=== PATIENT | female | born 1950 | race Caucasian/White ===

== ENCOUNTER → 2022-08-06 13:36 | Outpatient (REF) | payer MEDICARE, BC, SELFPAY ==
--- NOTE | 2022-08-06 13:44 | CA_ITS ---
Transthoracic Echocardiogram Patient (Last, First, Middle): Sridevi Morley, Gender: Female Date of : 1950 Age: 72 Procedure Date: 08/06/2022 Procedure Type: Transthoracic Echocardiogram Location: [place] Height: 165.1 cm Weight: 90.72 kg BSA: 1.98 m2 Heart Rate: bpm BP: 134 / 80 mmHg Chief Financial Officer: MICHELLE Referring MD: Louis Arguello MD Symptoms: DYSPNEA ON EXERTION R06.09 Study Quality: Technically Difficult ECG Rhythm: Sinus Conclusions: - The left ventricular systolic function is normal. The calculated ejection fraction is 69% by biplane method. - No obvious valvular pathology seen on this study. Findings Procedure Information The study quality is limited by lung artifact. Left Ventricle Normal left ventricular cavity size. There is mildly increased left ventricular wall thickness. The left ventricular systolic function is normal. The calculated ejection fraction is 69% by biplane method. There is no evidence of regional wall motion abnormalities. Diastolic function is normal for age. Right Ventricle Normal right ventricular cavity size. There is low normal right ventricular systolic function. Atria Both atria are normal in size. Aortic Valve There is a normal trileaflet aortic valve. There is no aortic valve stenosis. There is no aortic valve regurgitation. Mitral Valve The mitral valve appears normal. There is no mitral valve regurgitation. There is no mitral valve stenosis. Pulmonic Valve The pulmonic valve is likely normal. Tricuspid Valve There is trace tricuspid valve regurgitation. There is no evidence of pulmonary hypertension. Great Vessels The asc aorta is normal in size. Venous The inferior vena cava was not well visualized. Pericardium/Pleural There is no evidence of pericardial effusion. Prior Study Comparison No prior study available for comparison. Recommendations, Care & Conclusions No obvious valvular pathology seen on this study. Measurements 2D Linear Measurements IVSd: 1.18 0.6-0.9/0.6-1.0 cm LVIDd: 3.28 3.9-5.3/4.2-5.9 cm LVIDd Index: 1.66 2.4-3.2/2.2-3.1 cm/m2 LVIDs: 2.26 2.0-3.6 cm LVPWd: 1.06 0.7-1.1 cm LA Diam: 2.70 2.7-3.8/3.0-4.0 cm LAIDs Index: 1.36 1.5-2.3 cm/m2 LV Mass: 138.23 67-162/88-224 g LV Mass Index: 69.81 43-95/49-115 g/m2 LVOT Diam: 2.00 3.0+(-)1.3 cm 2D Systolic Function EF 4C: 66.90 >55% EF 2C: 72.10 >55% EF BiP: 68.90 >55% Mitral Valve MV Pk E: 0.60 MV PK A: 0.81 MV Decel Time: 283.00 E/A: 0.70 E'Lateral: 7.18 E'Medial: 6.85 E/E' Med: 8.80 E/E' Lat: 8.40 PHT: 83.00 MVA PHT: 2.65 Decel Grainger: 2.12 Aortic Valve AoV Pk Richard: 1.50 AoV Mn Richard: 1.03 AoV VTI: 0.30 AoV Pk Grad: 9.00 Aov Mn Grad: 5.00 HELENA Cont.VTI: 2.71 LVOT LVOT Pk Richard: 1.26 LVOT Mn Richard: 0.87 LVOT VTI: 0.26 LVOT Pk Grad: 6.00 LVOT Mn Grad: 3.00 LVOT Diam: 2.00 LVOT Area: 3.14 Diastolic Function MV Pk E: 0.60 MV Pk A: 0.81 E/A: 0.70 E'Medial: 6.85 E/E' Med: 8.80 E' Laterial: 7.18 E/E' Lat: 8.40 Right Ventricle TAPSE (mm): 17.50 TVS' Richard: 10.10 Tricuspid Valve TR Pk Richard: 1.82 TR Pk Grad: 13.00 Great Vessels Aorta Sinus of Valsalva: 3.79 2.0-3.[address] Ridge: 2.75 1.7-3.4 cm Ao Asc: 3.20 2.1-3.4 cm Updated in Other Vendor System with Status of Final Bashir Portillo MD electronically signed on 08/06/2022 4:16:08 PM with status of Final
== END ==
LOC: HO.CARD 13:36
PROVIDERS: Referring Provider Internal Medicine Cardiovascular Disease; Visit Provider Family Medicine
DX: R06.09 Other forms of dyspnea (principal)
CPT/HCPCS: 93306